=== PATIENT | female | born 1940 | race Caucasian/White ===

== ENCOUNTER 2019-03-02 08:30 | Day surgery (SDC) | payer MEDICARE ==
[2019-03-02] MEDS ORDERED: LIDOCAINE 2% MDV (20MG/ML) 20ML VIAL IV ONE (08:31)
[2019-03-02] MEDS ORDERED: PROPOFOL 10 MG/ML VIAL IV ONE (08:31)
--- NOTE | 2019-03-03 14:20 | Operative Note ---
DATE OF SURGERY: 03/02/2019 OPERATION: COLONOSCOPY to the cecum with cold snare polypectomy x1. INDICATION: History of adenomatous polyps. Her last examination was in 2006. She also had some transient left lower quadrant pain, feels better now. Colonoscopy is performed at this time for further evaluation. ANESTHESIA: Intravenous sedation was administered by the department of anesthesiology and included Diprivan titrated to effect. PROCEDURE: Following informed consent from this alert individual including a discussion of the risks and benefits of the procedure and an opportunity for the patient to ask questions, the patient was in the left lateral decubitus position. A digital rectal examination was performed. No abnormalities were noted. Following this, the Olympus [id number] video colonoscope was inserted into the rectum without resistance. The rectal mucosa had a normal appearance with normal folds and distensibility. The colonoscope was advanced up through the colon to the level of the cecum without much difficulty although the bowel was somewhat redundant and abdominal pressure support was supplied to facilitate reaching the ileocecal valve area. Looking into the cecal pouch, I did not see any large abnormalities. From this point, the colonoscope was then slowly withdrawn. Overall, the colon preparation was good. There was diverticulosis noted in the left colon on antegrade and retrograde inspection. Also, on initial passage toward the cecum, there was a 5 mm sessile polyp noted along a fold which was removed with cold snare polypectomy. No other polyps were seen throughout the examination. Again, diverticulosis was most apparent in the left colon with a few scattered diverticula in the right colon as well. From the cecum, as mentioned, the colonoscope was withdrawn. There were no additional changes upon withdrawal. Retroflexion in the rectum was endoscopically normal. The endoscope was straightened and removed. The patient tolerated the procedure well and was returned to the recovery area in stable condition. IMPRESSION: 1. A 5 mm polyp removed from the transverse colon with cold snare polypectomy. 2. Diverticulosis. RECOMMENDATIONS: Further recommendations will be forthcoming pending results of pathology obtained today. The patient was advised to follow up with Dr. Chin as well. As always, thank you for allowing me to participate in the care of your patient. CC: DO KADEEM Bahena
== END 2019-03-02 11:00 | disposition home or self-care (01) ==
LOC: HOP 08:30
PROVIDERS: ATTEND Internal Medicine Gastroenterology
DX: Z12.11 Encounter for screening for malignant neoplasm of colon (principal); Z86.010 Personal history of colon polyps; K63.5 Polyp of colon; K57.30 Diverticulosis of large intestine without perforation or abscess without bleeding; I10 Essential (primary) hypertension; K21.9 Gastro-esophageal reflux disease without esophagitis